=== PATIENT | male | born 1960 | race Caucasian/White ===

== ENCOUNTER 2016-10-01 23:54 | Emergency (ER) | payer OTHER ==
[2016-10-01 18:11] LABS: BASOPHILS 0.5 %; BASOPHILS ABSOLUTE 0.03 10/3/uL (0.0-0.16); EOSINOPHILS ABSOLUTE 0.25 10/3/uL (0.0-0.53); ER CBC TAT 0 Hrs 08 Mins; HEMOGLOBIN 14.4 g/dL (13.6-17.8); IMMATURE GRANULOCYTES 0.3 %; IMMATURE GRANULOCYTES ABSOLUTE 0.02 10/3/uL (0.0-0.11); LYMPHOCYTES 14.8 %; LYMPHOCYTES ABSOLUTE 0.92 10/3/uL (0.67-4.30); MEAN CORPUSCULAR HEMOGLOB 30.3 pg (26.0-34.0); MEAN CORPUSCULAR VOLUME 91.8 fL (80-100); MEAN PLATELET VOLUME 10.4 fL (9.2-13.0); MONOCYTES 9.1 %; MONOCYTES ABSOLUTE 0.57 10/3/uL (0.21-1.20); NEUTROPHILS 71.3 %; NEUTROPHILS ABSOLUTE 4.44 10/3/uL (2.02-8.40); PLATELET COUNT 188 10/3/uL (150-400); RED CELL COUNT 4.75 10/6/uL (4.7-6.1); WHITE BLOOD CELLS 6.2 10/3/uL (4.5-10.5)
[2016-10-01 18:12] LABS: HEMATOCRIT 43.6 % (40.0-51.0); MANUAL DIFF NO %; RBC DISTRIBUTION WIDTH 17.6 % (12.0-16.0)
[2016-10-01 18:20] LABS: INTERNATIONAL NORMAL RATI 4.4 UNITS (-); PARTIAL THROMBO TIME 46.3 SEC (22.5-37.2)
[2016-10-01 18:21] LABS: PROTIME (NOT ORD) 41.4 SEC (12.0-14.5)
[2016-10-01 18:27] LABS: BUN (BLOOD UREA NITROGEN) 17 MG/DL (6-23); CALCIUM, SERUM 8.3 MG/DL (8.5-10.4); CHEST PAIN PROFILE TAT 0 Hrs 24 Mins; CHLORIDE, SERUM 100 MMOL/L (96-112); GFR AFRICAN AMERICAN 78 ML/MIN (>=60); GFR NON AFRICAN AMERICAN 67 ML/MIN (>=60); POTASSIUM, SERUM 3.2 MMOL/L (3.5-5.3); SODIUM, SERUM 141 MMOL/L (135-148); TROPONIN I 0.03 NG/ML (<0.05)
[2016-10-01 18:28] LABS: CO2 (CARBON DIOXIDE) 32 MMOL/L (24-34); GLUCOSE, SERUM 109 MG/DL (60-99)
[~2016-10-01 23:54] MED LIST: ASA5GR PO; ASAB PO; AUG875 PO; C5 PO; COREG12 PO; COREG25 PO; COREG6 PO; COUMADIN10 MG PO; COUMADIN7.5 MG PO; DIABETA5 PO; DUONEB INH; FISH-EPA1000 MG PO; FOLIC ACID PO; FOLIC PO; GLUCPH PO; JANTOVEN7.5 MG PO; K-TABS10 MEQ PO; KLOR-CON 1010 MEQ PO; L20 PO; L40 PO; LANTUS SC; LOP50 PO; LOVENOX1C SC; MULTIPLE VIT PO; NIASPAN500 PO; PRIN10 PO; PRIN20 PO; PROAIR HFA INH; SPIRIVA INH; TRADJENTA5 MG PO; VIT B 12; VITAMIN B-121000 MC1 SL; ZESTRIL20 MG PO; ZOCOR20 PO
== END 2016-10-02 00:26 | disposition home or self-care (01) ==
LOC: ER 23:54
PROVIDERS: Emergency Medicine
DX: I11.0 Hypertensive heart disease with heart failure (principal); I50.9 Heart failure, unspecified; E87.6 Hypokalemia; F17.200 Nicotine dependence, unspecified, uncomplicated; E11.9 Type 2 diabetes mellitus without complications; Z95.5 Presence of coronary angioplasty implant and graft; J44.9 Chronic obstructive pulmonary disease, unspecified; I25.2 Old myocardial infarction; Z88.5 Allergy status to narcotic agent; Z79.899 Other long term (current) drug therapy; Z79.01 Long term (current) use of anticoagulants; Z79.4 Long term (current) use of insulin
CPT/HCPCS: 71020; 80048; 83735; 83880; 84484; 85025; 85610; 85730; 93005; 99285; A9270-GY